=== PATIENT | male | born 1950 | race Caucasian/White ===

== ENCOUNTER 2017-12-20 23:59 | Emergency (ER) | payer BC, MEDICARE, SELFPAY ==
[2017-12-21 00:09] VITALS: BP 161/76; PULSE 85; RESP 15; TEMP 36.8; O2SAT 96; BMI 35.7
--- NOTE | 2017-12-21 00:21 | ED.EAR ---
HPI - Ear Problem General Chief complaint: Ear Stated complaint: left ear pain Time Seen by Provider: 12/21/17 00:06 Source: patient Mode of arrival: ambulatory Limitations: no limitations History of Present Illness HPI Narrative: 67-year-old male here for evaluation of 24-48 hours of left ear pain. Patient states that his had pain in that left ear has been worsening over the past couple days. No fevers. No decreased hearing. Did use some ?wax removal ?drops in his ear a couple days ago. But he feels like the symptoms started prior to that. No fevers. No sore throat. Related Data Previous Rx's Medication Instructions Recorded ciprofloxacin-dexamethasone 4 drop EAR-LEFT BID 7 Days #7.5 ml 12/21/17 [Ciprodex] Allergies Allergy/AdvReac Type Severity Reaction Status Date / Time No Known Drug Allergies Allergy Verified 12/21/17 00:09 Review of Systems Constitutional Denies chills, Denies fever(s), Denies headache(s), Denies lethargy and Denies weakness Eyes Denies blurry vision, Denies change in vision and Denies itchy eyes ENT Ears, Nose, Mouth, and Throat: Denies dental pain, Denies vertigo, Denies ear discharge, Reports otalgia, Denies headache(s), Denies mouth pain, Denies nasal congestion, Denies nasal discharge, Reports neck pain (Left-sided), Denies post nasal drip, Denies sore throat, Denies throat swelling and Denies tongue swelling Musculoskeletal Reports neck pain (Left-sided) Integumentary/Breasts Denies pruritus, Denies erythema, Denies rash and Denies wounds Neurologic Denies vertigo, Denies headache(s) and Denies weakness Hematologic/Lymphatic Denies easy bruising Allergic/Immunologic Denies urticaria, Denies itchy eyes, Denies throat swelling and Denies tongue swelling [facility] Social History Smoking Status: Never smoker Exam Initial Vital Signs Initial Vital Signs: Vital Signs Temperature 98.3 F 12/21/17 00:09 Pulse Rate 85 12/21/17 00:09 Respiratory Rate 15 12/21/17 00:09 Blood Pressure 161/76 H 12/21/17 00:09 Pulse Oximetry 96 12/21/17 00:09 Const General: cooperative and well developed Nutritional Appearance: well nourished Orientation: alert, awake, oriented x3 and not confused [facility] Head: normal to inspection, normocephalic and atraumatic Ears: hearing grossly normal bilaterally, TM's normal bilaterally, EAC's not normal (Right canal unremarkable. Left canal red and swollen), mastoids normal, no periauricular adenopathy and EAC abnormal erythema on the left, edema on the left and EAC tenderness on the left; no foreign body and no otic discharge Nose: external nose normal Face and sinus: dry mucous membranes Mouth: oral mucosae normal Throat: posterior oropharynx normal Resp Effort & Inspection: normal respiratory effort Skin General: no rashes or lesions noted, No jaundice and No petechiae Course Orders Ordered: Discontinued Medications Ciprofloxacin/Dexamethasone (Ciprodex Otic Susp) 4 drops EAR-LEFT NOW ONE Stop: 12/21/17 00:23 Vital Signs - 8 hr 12/21/17 00:09 Temperature 98.3 F Pulse Rate 85 Respiratory Rate 15 Blood Pressure 161/76 H Pulse Oximetry 96 Medical Decision Making [facility] Narrative Medical decision making narrative: Patient with history and physical exam is consistent with left-sided acute otitis external. Tympanic membrane on the left appears intact. The canal is not swollen shut. Uncertain if the etiology of this was from the ?wax removal ?drops that he put in his ear a couple days ago or from hearing aids that he started to use over the past month irritating his ear. Patient has not been swimming. Will send home with a prescription for Ciprodex. Patient was given return precautions. Instructed to take Tylenol/ibuprofen for any discomfort. Patient expressed understanding and agreement with plan Discharge Plan Departure Patient Disposition: Home, Self-Care Clinical Impression: Otitis externa Instructions: Otitis Externa Activity Restrictions/Additional Instructions: Take all of the medications as instructed. Would recommend that you do not wear your hearing aid into your symptoms are better. Call your primary doctor for a follow-up. Return to the emergency department for any new or worsening symptoms Prescriptions: New ciprofloxacin-dexamethasone [Ciprodex] 0.3-0.1 % drops,suspension 4 drop EAR-LEFT BID 7 Days Qty: 7.5 RF: 0
== END 2017-12-21 00:56 | disposition home or self-care (01) ==
PROVIDERS: Emergency Provider Emergency Medicine
DX: H60.92 Unspecified otitis externa, left ear (principal)
CPT/HCPCS: 99282